=== PATIENT | male | born 1935 | race Hispanic/Latino ===

== ENCOUNTER → 2018-12-30 | Outpatient (CLI) | payer MEDICARE ==
[~2018-12-30] VITALS: Ht 167.6 cm; Wt 88.5 kg
[~2018-12-30] MED LIST: REGADENOSON 0.4 MG/5 ML PF SYG IVP SCH
== END | disposition home or self-care (01) ==
LOC: SHCH 08:09
PROVIDERS: ATTEND Internal Medicine Cardiovascular Disease
DX: I50.32 Chronic diastolic (congestive) heart failure (principal); I47.2 Ventricular tachycardia
CPT/HCPCS: 78452; 93017; 96374; A9500 ×2; J2785